=== PATIENT | female | born 1960 | race Caucasian/White ===

== ENCOUNTER 2016-10-03 17:09 | Emergency (ER) | payer OTHER ==
[2016-10-03] MEDS ORDERED: CLARITIN10 M6 PO (17:16)
[2016-10-03] MEDS ORDERED: PRINIVIL10 M1 PO (17:16)
[2016-10-03] MEDS ORDERED: HYDROCHLOROTHIA25 M1 PO (17:16)
[2016-10-03] MEDS ORDERED: CENTRUM SILVER1 EAC6 PO (17:16)
[2016-10-03 17:52] LABS: ANION GAP 11 mmol/L (0-20); BLOOD UREA NITROGEN 11 mg/dl (6-24); CALCIUM 8.8 mg/dl (8.5-10.5); CARBON DIOXIDE-VENOUS 27 mmol/L (22-32); CHLORIDE 106 mmol/l (96-110); CREATININE 0.71 mg/dl (0.50-1.10); GLUCOSE 97 mg/dL (70-110); MAGNESIUM 2.4 mg/dl (1.8-2.6); POTASSIUM 3.6 mmol/L (3.7-5.1); SODIUM 140 mmol/L (135-145); eGFR VALUE FOR BLACK >90 mL/Min
== END 2016-10-03 18:10 ==
LOC: EDMED 17:09
PROVIDERS: Emergency Medicine
DX: I49.3 Ventricular premature depolarization (principal); E87.6 Hypokalemia; I10 Essential (primary) hypertension